=== PATIENT | female | born 1950 | race Caucasian/White ===

== ENCOUNTER 2023-09-13 15:48 | Emergency (ER) | payer MEDICARE, MEDICAID ==
[~2023-09-13] VITALS: Ht 170.2 cm; Wt 73.0 kg
[2023-09-13 15:59] VITALS: O2SAT 97
[2023-09-13] MEDS: KETOROLAC 30MG/ML VIAL IM ONE (18:21)
[2023-09-13] MEDS ORDERED: ACET-2708 MT (19:09)
[2023-09-13] MEDS ORDERED: IBUP-2029 MT (19:09)
[2023-09-13] MEDS: ACETAMINOPHEN 500MG TABLET PO NR (19:30)
[2023-09-13 20:15] VITALS: BP 129/75; PULSE 94; RESP 16; TEMP 98.6
== END 2023-09-13 20:15 | disposition home or self-care (01) ==
LOC: ER 15:48
DX: M54.50 Low back pain, unspecified (principal); W18.30XA Fall on same level, unspecified, initial encounter; Y93.89 Activity, other specified; Y92.89 Other specified places as the place of occurrence of the external cause; Y99.8 Other external cause status
CPT/HCPCS: 99283; 72100; 96372; J1885